=== PATIENT | female | born 1955 | race Caucasian/White ===

== ENCOUNTER → 2018-03-03 13:00 | Outpatient (CLI) | payer OTHER, SELFPAY | PROVIDERS: Family Provider Family Medicine | DX: Z23 Encounter for immunization (principal) | CPT/HCPCS: 90471; 90682 ==

== ENCOUNTER → 2018-08-10 14:40 | Outpatient (CLI) | payer OTHER, SELFPAY | PROVIDERS: PCP Family Medicine; Visit Provider Family Medicine | DX: Z13.820 Encounter for screening for osteoporosis (principal); M85.852 Other specified disorders of bone density and structure, left thigh; Z78.0 Asymptomatic menopausal state; Z82.62 Family history of osteoporosis | CPT/HCPCS: 77080 ==

== ENCOUNTER → 2018-08-24 14:00 | Outpatient (CLI) | payer OTHER, SELFPAY ==
--- NOTE | 2018-08-24 | DI.MG.S_ITS ---
BILATERAL DIGITAL SCREENING MAMMOGRAM 3D/2D WITH CAD: 08/24/2018 CLINICAL: Routine screening. Comparison is made to exams dated: 07/30/2017 mammogram, 04/16/2016 mammogram, and 03/13/2015 mammogram - [facility]. There are scattered fibroglandular elements in both breasts. Current study was also evaluated with a Computer Aided Detection (CAD) system. No significant masses, calcifications, or other findings are seen in either breast. There has been no significant interval change. IMPRESSION: NEGATIVE There is no mammographic evidence of malignancy. A 1 year screening mammogram is recommended. This exam was interpreted at Station ID: [id number]. NOTE: For mammograms, a report in lay terms will be sent to the patient. Approximately 15% of breast malignancies will not be visualized mammographically. In the management of a palpable breast mass, a negative mammogram must not discourage biopsy of a clinically suspicious lesion. Electronically Signed By: Aron muniz/antonietta:08/25/2018 08:06:27 letter sent: Normal Exam ACR BI-RADS Category 1: Negative 3341F
== END ==
PROVIDERS: PCP Family Medicine; Visit Provider Family Medicine
DX: Z12.31 Encounter for screening mammogram for malignant neoplasm of breast (principal)
CPT/HCPCS: 77063; 77067

== ENCOUNTER → 2019-03-09 12:18 | Outpatient (CLI) | payer OTHER, SELFPAY | PROVIDERS: PCP Family Medicine | DX: Z23 Encounter for immunization (principal) | CPT/HCPCS: 90471; 90682 ==

== ENCOUNTER → 2020-07-03 07:55 | Outpatient (CLI) | payer MEDICARE, OTHER, SELFPAY ==
[2020-07-03] MEDS: COVID-19 VACC #1, MRNA(MOD) 100 MCG/0.5 ML VIAL IM (08:02)
== END ==
PROVIDERS: PCP Family Medicine; Visit Provider Internal Medicine
DX: Z23 Encounter for immunization (principal)
CPT/HCPCS: 0011A; 91301

== ENCOUNTER → 2020-07-31 07:53 | Outpatient (CLI) | payer MEDICARE, OTHER, SELFPAY ==
[2020-07-31] MEDS: COVID-19 VACC #2, MRNA(MOD) 100 MCG/0.5 ML VIAL IM (08:04)
== END ==
PROVIDERS: PCP Family Medicine; Visit Provider Internal Medicine
DX: Z23 Encounter for immunization (principal)
CPT/HCPCS: 0012A; 91301

== ENCOUNTER → 2020-09-16 10:48 | Outpatient (CLI) | payer MEDICARE, OTHER, SELFPAY ==
--- NOTE | 2020-09-16 | DI.MG.S_ITS ---
BILATERAL DIGITAL SCREENING MAMMOGRAM 3D/2D WITH CAD: 09/16/2020 CLINICAL: Routine screening. Comparison is made to exams dated: 08/24/2018 mammogram, 07/30/2017 mammogram, and 04/16/2016 mammogram - [facility]. There are scattered fibroglandular elements in both breasts. Current study was also evaluated with a Computer Aided Detection (CAD) system. No significant masses, calcifications, or other findings are seen in either breast. There has been no significant interval change. IMPRESSION: NEGATIVE There is no mammographic evidence of malignancy. A 1 year screening mammogram is recommended. This exam was interpreted at Station ID: [id number]. NOTE: For mammograms, a report in lay terms will be sent to the patient. Approximately 15% of breast malignancies will not be visualized mammographically. In the management of a palpable breast mass, a negative mammogram must not discourage biopsy of a clinically suspicious lesion. Electronically Signed By: Sharmaine guajardo/antonietta:09/16/2020 16:38:17 letter sent: Normal Exam ACR BI-RADS Category 1: Negative 3341F
== END ==
PROVIDERS: PCP Family Medicine; Referring Provider Family Medicine; Visit Provider Family Medicine
DX: Z12.31 Encounter for screening mammogram for malignant neoplasm of breast (principal)
CPT/HCPCS: 77063; 77067

== ENCOUNTER → 2021-04-11 09:01 | Outpatient (CLI) | payer MEDICARE, OTHER, SELFPAY ==
[2021-04-11] MEDS: COVID-19 VACC #3, MRNA(MOD) 50 MCG/0.25 ML VIAL IM (09:16)
== END ==
PROVIDERS: PCP Family Medicine; Visit Provider Internal Medicine
DX: Z23 Encounter for immunization (principal)
CPT/HCPCS: 0013A; 91301

== ENCOUNTER → 2021-10-07 15:31 | Outpatient (ROUT) | payer MEDICARE, OTHER, SELFPAY ==
[2021-10-07 16:17] LABS: COVID-19 CEPHEID PCR (VTM/NP) POSITIVE (Negative)
== END ==
PROVIDERS: PCP Family Medicine; Visit Provider Family Medicine
DX: U07.1 COVID-19 (principal); J02.9 Acute pharyngitis, unspecified
CPT/HCPCS: U0003; U0005

== ENCOUNTER → 2022-04-13 08:22 | Outpatient (CLI) | payer MEDICARE, OTHER, SELFPAY ==
--- NOTE | 2022-04-13 | DI.MG.S_ITS ---
BILATERAL DIGITAL SCREENING MAMMOGRAM 3D/2D WITH CAD: 04/13/2022 CLINICAL: Routine screening. Comparison is made to exams dated: 09/16/2020 mammogram, 08/24/2018 mammogram, and 07/30/2017 mammogram - [facility]. There are scattered areas of fibroglandular density in both breasts (category b / 25%-50% glandular tissue). Current study was also evaluated with a Computer Aided Detection (CAD) system. No significant masses, calcifications, or other findings are seen in either breast. There has been no significant interval change. IMPRESSION: NEGATIVE There is no mammographic evidence of malignancy. A 1 year screening mammogram is recommended. Based on the Tyrer Cuzick model (a risk assessment model) the patient's lifetime risk is 5.9% and her 10 year risk is 3.5%. According to the ACR, ACS, and NCCN guidelines, an annual breast MRI exam along with mammogram is recommended if the patient's lifetime risk is 20% or greater. This exam was interpreted at Station ID: [id number]. NOTE: For mammograms, a report in lay terms will be sent to the patient. Approximately 15% of breast malignancies will not be visualized mammographically. In the management of a palpable breast mass, a negative mammogram must not discourage biopsy of a clinically suspicious lesion. Electronically Signed By: Omari ho/antonietta:04/13/2022 14:15:23 letter sent: Normal Exam ACR BI-RADS Category 1: Negative 3341F
== END ==
PROVIDERS: PCP Family Medicine; Referring Provider Family Medicine; Visit Provider Family Medicine
DX: Z12.31 Encounter for screening mammogram for malignant neoplasm of breast (principal)
CPT/HCPCS: 77063; 77067

== ENCOUNTER → 2022-07-03 11:08 | Outpatient (ROUT) | payer MEDICARE, OTHER, SELFPAY ==
[2022-07-03 11:58] LABS: Influenza A - CEPHEID Flu A NEGATIVE (NEGATIVE); Influenza B - CEPHEID Flu B NEGATIVE (NEGATIVE); Respiratory Syncytial Virus Negative (Negative)
[2022-07-03 11:59] LABS: COVID-19 CEPHEID 4-PLEX PCR Negative (Negative)
== END ==
PROVIDERS: Family Medicine; PCP Family Medicine; Visit Provider Family Medicine
DX: Z20.822 Contact with and (suspected) exposure to COVID-19 (principal)
CPT/HCPCS: 0241U

== ENCOUNTER → 2023-05-11 14:07 | Outpatient (ROUT) | payer MEDICARE, OTHER, SELFPAY ==
[2023-05-11 14:50] LABS: Influenza A - CEPHEID Flu A NEGATIVE (NEGATIVE); Influenza B - CEPHEID Flu B NEGATIVE (NEGATIVE); Respiratory Syncytial Virus Negative (Negative)
[2023-05-11 15:31] LABS: COVID-19 CEPHEID 4-PLEX PCR Negative (Negative)
== END ==
PROVIDERS: PCP Family Medicine; Visit Provider Family Medicine
DX: J06.9 Acute upper respiratory infection, unspecified (principal)
CPT/HCPCS: 0241U

== ENCOUNTER → 2023-05-19 09:08 | Outpatient (CLI) | payer MEDICARE, OTHER, SELFPAY ==
--- NOTE | 2023-05-19 | DI.MG.S_ITS ---
BILATERAL DIGITAL SCREENING MAMMOGRAM 3D/2D WITH CAD: 05/19/2023 CLINICAL: Routine screening. Comparison is made to exams dated: 09/16/2020 mammogram, 04/13/2022 mammogram, and 08/24/2018 mammogram - [facility]. There are scattered areas of fibroglandular density in both breasts (category b / 25%-50% glandular tissue). Current study was also evaluated with a Computer Aided Detection (CAD) system. No significant masses, calcifications, or other findings are seen in either breast. There has been no significant interval change. IMPRESSION: NEGATIVE There is no mammographic evidence of malignancy. A 1 year screening mammogram is recommended. Based on the Tyrer Cuzick model (a risk assessment model) the patient's lifetime risk is 5.6% and her 10 year risk is 3.5%. According to the ACR, ACS, and NCCN guidelines, an annual breast MRI exam along with mammogram is recommended if the patient's lifetime risk is 20% or greater. This exam was interpreted at Station ID: [id number]. NOTE: For mammograms, a report in lay terms will be sent to the patient. Approximately 15% of breast malignancies will not be visualized mammographically. In the management of a palpable breast mass, a negative mammogram must not discourage biopsy of a clinically suspicious lesion. Electronically Signed By: Sharmaine guajardo/antonietta:05/19/2023 15:20:29 letter sent: Normal Exam ACR BI-RADS Category 1: Negative 3341F
== END ==
PROVIDERS: PCP Family Medicine; Referring Provider Family Medicine; Visit Provider Family Medicine
DX: Z12.31 Encounter for screening mammogram for malignant neoplasm of breast (principal)
CPT/HCPCS: 77063; 77067

== ENCOUNTER → 2023-06-17 14:16 | Outpatient (CLI) | payer MEDICARE, OTHER, SELFPAY ==
--- NOTE | 2023-06-29 17:18 | DIAB.MNT ---
Initial Diabetes Medical Nutrition Therapy Assessment Name: Desirae Moreno Date: 06/17/23 Time: 235-4p Dx: Type II Diabetes Provider: Maco Desirae presents for initial Dm visit. FH of Dm with father, sister, and paternal grandmother. Reports newly diagnosed last year, Jul 2022. States her HgA1c is usually in the 6-7% range with recent per referral at 7%. No DM medications currently. Today she is looking for realistic nutrition recommendations. Has seen a different DM educator previously, but felt she was unable to ask questions she had in the allotted time. Wants to know a healthy weight for her, rec kcals and macros, snack ideas. Feels she should be 135# reportedly. States her prepares meals. 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 Lunch has to be quick. Diet Recall: 730a; peanuts, coffee with collagen 9am: avocado toast with egg and tea 11am; almonds 1230p: equatorial guinean yogurt, berries, HB egg 6p: chx fajita with flour tortilla and veg Fluids: buble water, coconut water, cran x 2oz, coffee Anthropometrics: Ht: 62 Wt: 170# reported Physical Activity: walks 3-4x per week for 60 min. 10, 000 steps per day when working. unclear how much on non work days. Has a treadmill. Self-Monitoring Blood Glucose: None, states she has not been asked to and is not interested. Diabetes Medications: None Pertinent Labs: 10/2022 HgA1c 7% chol: 164 TG 97 HDL 6 LDL 80 Past Medical History: (Last Updated 01/31/18 @ 11:05 by Val Kenyon) Chicken pox (1958) Foot fracture, left (1978) Metatarsals Glaucoma (~1989) History of Hypothyroidism (2012) MRSA infection (~2011) MVP (mitral valve prolapse) (2002) Normal Papanicolaou smear No known history of abnormal Pap. Plantar fasciitis Prediabetes Recurrent sinusitis (2009) Nutrition Rx: 1200-1400kcals CHO: 130g (SPOT SPRAYER) Pro: 70-80g Nutrition Diagnosis: - Nutrition and food related knowledge deficit r/t limited MNT/DSME aeb pt report Intervention: This participant was very receptive. Provided appropriate educational handouts. Discussed the following topics: Completed intake assessment. Discussed barriers to care. Pathophysiology of T2DM HgA1c, its correlation to blood glucose numbers, and rationale for goal Option for SMBG prn Plate Method, impact of macronutrients on blood sugar, meal timing, carbohydrate counting, pairing macronutrients and spreading out carbohydrates for better blood glucose management Recommended servings for carbohydrates at meals and snacks Heart health nutrition Weight recs based on AdjBW and BW hx Healthy weight for age Provided snack list Brainstormed appropriate meal plan based on food preferences Role of physical activity and following provider guidelines for safety Created SMART goals for patient self-care and success. Goals: Wear tracker on non work days Try a new lunch idea Download food tracking lalo if interested Follow-up: NAN GODWIN follow-up in 3-4 weeks Brittani Beavers, MPH, RDN, CDCES Certified Diabetes Care and Safety Manager P: [phone] Thank you for this referral
== END ==
LOC: DIET 14:17
PROVIDERS: PCP Family Medicine; Referring Provider Family Medicine; Visit Provider Family Medicine
DX: E11.9 Type 2 diabetes mellitus without complications (principal); Z71.3 Dietary counseling and surveillance
CPT/HCPCS: 97802

== ENCOUNTER → 2023-07-29 08:45 | Outpatient (CLI) | payer MEDICARE, OTHER, SELFPAY ==
--- NOTE | 2023-08-05 10:05 | DIAB.MNTFU ---
Follow-up Diabetes Medical Nutrition Therapy Assessment Name: Desirae Moreno Date: 07/29/23 Time: 9-10a Dx: Type II Diabetes Desirae presents for DM follow-up. Desirae has been tracking food intake. 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 Wanting to go over nutrient goals in tracking, fat types and amts, recipe resources, and lower carb crunchy snacks. States she tried overnight oats but did not like the recipe. Open to other oat recipes. During tracking noticed lower hydration than she thought. Now uses 3x24oz water bottles per day. Anthropometrics: Ht: 62 Wt: 170# reported last visit Physical Activity: walks 3-4x per week for 60 min. 10, 000 steps per day when working. Non work days getting 70,000 or more. Wearing tracker now on non work days. Self-Monitoring Blood Glucose: None, states she has not been asked to and is not interested. Diabetes Medications: None Pertinent Labs: 10/2022 HgA1c 7% chol: 164 TG 97 HDL 6 LDL 80 Past Medical History: (Last Updated 01/31/18 @ 11:05 by Val Kenyon) Chicken pox (1957) Foot fracture, left (1978) Metatarsals Glaucoma (~1989) History of Hypothyroidism (2012) MRSA infection (~2011) MVP (mitral valve prolapse) (2002) Normal Papanicolaou smear No known history of abnormal Pap. Plantar fasciitis Prediabetes Recurrent sinusitis (2009) Nutrition Rx: 1200-1400kcals CHO: 130g (EMERGENCY MAN) Pro: 70-80g Nutrition Diagnosis: - Nutrition and food related knowledge deficit r/t limited MNT/DSME aeb pt report- improved Intervention: This participant was very receptive. Provided appropriate educational handouts. Discussed the following topics: Heart health nutrition: fats types and recs Low carb snack ideas Online and book recipe resources Overnight oats with adri recipe Nutrition recs: fat, cho, pro Physical activity plan and progress Created SMART goals for patient self-care and success. Goals: Wear tracker on non work days- met Try a new lunch idea- met Download food tracking lalo if interested - met Aim for 10,000 steps on non work days- new Try a new recipe- new 15 min movement after meals- new Follow-up: NAN GODWIN follow-up in 2-3 weeks Brittani Beavers RDN, TATO Certified Diabetes Care and Tax Technician P: [phone] Thank you for this referral
== END ==
PROVIDERS: PCP Family Medicine; Referring Provider Family Medicine; Visit Provider Family Medicine
DX: E11.9 Type 2 diabetes mellitus without complications (principal); Z71.3 Dietary counseling and surveillance
CPT/HCPCS: 97803

== ENCOUNTER → 2023-08-18 11:00 | Outpatient (CLI) | payer MEDICARE, OTHER, SELFPAY ==
--- NOTE | 2023-08-18 11:03 | DI.RAD.S_ITS ---
PROCEDURE: XR TIBIA FIBULA LT 2V INDICATIONS: TIBIA MASS TECHNIQUE: 2 views of the tibia and fibula were acquired. COMPARISON: None. FINDINGS: Bones: No fractures or dislocations. No suspicious bony lesions. Soft tissues: No suspicious soft tissue calcifications or masses. Small vascular calcification along the anterior tibia, below the region of concern. No radiographic abnormality in the region of concern. IMPRESSION: No radiographic abnormality in the region of concern. Dictated by: Cain Hu M.D. on 08/18/2023 at 12:09 Approved by: Cain Hu M.D. on 08/18/2023 at 12:10
== END ==
LOC: RAD 11:01
PROVIDERS: PCP Family Medicine; Referring Provider Family Medicine; Visit Provider Family Medicine
DX: M89.8X6 Other specified disorders of bone, lower leg (principal)
CPT/HCPCS: 73590

== ENCOUNTER → 2023-08-25 09:02 | Outpatient (CLI) | payer MEDICARE, OTHER, SELFPAY ==
--- NOTE | 2023-08-25 09:04 | DI.RAD.S_ITS ---
Bone Density Report Name: ANGLE JOHNSON Age: 68 Sex: Female Ethnicity: White Date of : 1955 Indication: osteopenia; Referring Provider: KLAUDIA HINES Study: Bone densitometry was performed. Exam Date: August 25, 2023 Accession number: [id number] Bone Density: Region BMD T-score Z-score Classification AP Spine(L1-L4) 0.846 -1.8 0.3 Osteopenia Femoral Neck (Left) 0.689 -1.4 0.4 Osteopenia Total Hip (Left) 0.846 -0.8 0.7 Normal Femoral Neck (Right) 0.709 -1.3 0.6 Osteopenia Total Hip (Right) 0.805 -1.1 0.4 Osteopenia Total Hip Mean 0.826 -1.0 0.6 Normal World Health Organization criteria for BMD impression classify patients as: Normal (T-score at or above -1.0), Osteopenia (T-score between -1.0 and -2.5), or Osteoporosis (T-score at or below -2.5). 10-year Fracture Risk(1): Major Osteoporotic Fracture 9.6% Hip Fracture 1.3% Reported Risk Factors: [place] (), Neck BMD=0.689, BMI=29.6 (1) FRAX(R) Version 3.08. Fracture probability calculated for an untreated patient. Fracture probability may be lower if the patient has received treatment. Previous Exams: -- Region Exam Age BMD T-score BMD Change BMD Change Date g/cm2 vs Baseline vs Previous -- AP Spine (L1-L4) 08/25/2023 68 0.846 -1.8 -0.058 (-6.4%)# -0.077 (-8.3%)# 08/10/2018 63 0.923 -1.1 0.019 (2.1%) 0.001 (0.1%) 03/20/2013 58 0.922 -1.1 0.018 (2.0%) 0.018 (2.0%) 01/29/2010 54 0.904 -1.3 Total Hip(Left) 08/25/2023 68 0.846 -0.8 -0.101 (-10.7%)# -0.061 (-6.7%)# 08/10/2018 63 0.907 -0.3 -0.040 (-4.2%)* -0.038 (-4.0%)* 03/20/2013 58 0.945 0.0 -0.002 (-0.2%) -0.002 (-0.2%) 01/29/2010 54 0.947 0.0 Total Hip(Right) 08/25/2023 68 0.805 -1.1 -0.124 (-13.3%)# -0.129 (-13.8%)# 08/10/2018 63 0.934 -0.1 0.005 (0.5%) 0.012 (1.3%) 03/20/2013 58 0.922 -0.2 -0.007 (-0.8%) -0.007 (-0.8%) 01/29/2010 54 0.929 -0.1 -- *Denotes significance at 95% confidence level, LSC for AP Spine = 0.022 g/cm2, LSC for Total Hip = 0.027 g/cm2 # Denotes dissimilar scan types or analysis methods Impression: The patient has low bone mass, based on the Total Spine T-score. The patient has an estimated ten-year risk of hip fracture of 1.3% and an estimated ten-year risk of major fracture of 9.6%, based on the WHO FRAX algorithm. No significant bone loss was observed. Discussion: BONE DENSITY IS LOW AT ONE OR MORE SKELETAL SITES. This patient's lowest T-score is low at one or more skeletal sites. It meets the World Health Organization's (WHO) criteria for low bone mass (T-score between -1.0 and -2.5). The patient's 10-year risk of fracture as calculated by FRAX is less than the threshold where pharmacological therapy is recommended by the National Osteoporosis Foundation (NOF). However, all treatment decisions require clinical judgment and consideration of individual patient factors, including patient preferences, comorbidities, previous drug use, risk factors not captured in the FRAX model (e.g., frailty, falls, vitamin D deficiency, increased bone turnover, interval significant decline in bone density) and possible under or overestimation of fracture risk by FRAX. The patient should follow a healthful lifestyle (good nutrition with adequate calcium and vitamin D, and appropriate weight-bearing exercise). Follow-Up: Consider repeating this study in 2 to 3 years to reassess this patient's status, or sooner if there is some new clinical indication. Reported by: BETTY SMITH MD on 08/25/2023 9:26:00 AM.
== END ==
LOC: RAD 09:02
PROVIDERS: PCP Family Medicine; Referring Provider Family Medicine; Visit Provider Family Medicine
DX: M85.89 Other specified disorders of bone density and structure, multiple sites (principal)
CPT/HCPCS: 77080

== ENCOUNTER → 2023-08-25 17:02 | Outpatient (CLI) | payer MEDICARE, OTHER, SELFPAY ==
--- NOTE | 2023-08-25 17:03 | DI.MRI.S_ITS ---
PROCEDURE: MR LOWER LEG LT WO/W CON INDICATIONS: LEFT TIBIAL MASS TECHNIQUE: Noncontrast coronal T1 spin echo and STIR, sagittal T1 spin echo with fat saturation and STIR, axial T1 spin echo and T2 fast spin echo with fat saturation. After the administration of contrast, axial/sagittal/coronal T1 spin echo with fat saturation through the left lower leg. COMPARISON: [facility], CR, XR TIBIA FIBULA LT 2V, 08/18/2023, 11:27. FINDINGS: Image quality: Excellent. Bones: Fiducial marker is placed over anterior aspect of left lower leg at the level of mid tibial shaft. There is no marrow edema. No fracture or dislocation. No bony erosive changes or abnormal periosteal reaction. Soft tissues: There is a well-circumscribed oval T2 hyperintense and T1 hypointense structure within deep soft tissue along anterior aspect of proximal to mid tibial shaft deep to the site of the marker and measures up to 1.9 x 1.4 x 3.1 cm in size series 5, image 21 and series 7, image 22. After IV contrast infusion, there is no contrast enhancement within this structure. No enhancing soft tissue mass or drainable fluid collection. The scanned muscles demonstrate normal overall bulk and internal signal. IMPRESSION: 1. 1.9 x 1.4 x 3.1 cm cystic structure in deep soft tissue along anterior cortex of proximal to mid tibial shaft at the site of fiducial marker and show no contrast enhancement. Finding likely represent a deep soft tissue ganglion cyst in this area. 2. No enhancing soft tissue mass or drainable fluid collection is seen. 3. No marrow edema. No fracture or dislocation. No area of abnormal intraosseous enhancement. Dictated by: Freedom Jean Baptiste M.D. on 08/26/2023 at 16:34 Approved by: Freedom Jean Baptiste M.D. on 08/26/2023 at 16:41
== END ==
LOC: MRI 17:03
PROVIDERS: PCP Family Medicine; Referring Provider Family Medicine; Visit Provider Family Medicine
DX: M89.8X6 Other specified disorders of bone, lower leg (principal); M85.89 Other specified disorders of bone density and structure, multiple sites
CPT/HCPCS: 73720; 77080; A9579

== ENCOUNTER → 2023-10-04 11:13 | Outpatient (CLI) | payer MEDICARE, OTHER, SELFPAY ==
--- NOTE | 2023-10-04 11:16 | DI.RAD.S_ITS ---
PROCEDURE: XR KNEE LT 3V INDICATIONS: KNEE PAIN TECHNIQUE: 3 views of the knee were acquired. COMPARISON: None. FINDINGS: Bones: No fractures or dislocations. There are small intercondylar osteophytes and moderate medial femorotibial compartment narrowing. No suspicious bony lesions. Soft tissues: No joint effusion. No suspicious soft tissue calcifications. IMPRESSION: No acute bony abnormality or significant effusion. Mild osteoarthritis. Dictated by: Donna Magaña M.D. on 10/04/2023 at 14:18 Approved by: Donna Magaña M.D. on 10/04/2023 at 14:20
--- NOTE | 2023-10-04 11:16 | DI.RAD.S_ITS ---
PROCEDURE: XR KNEE RT 3V INDICATIONS: KNEE PAIN TECHNIQUE: 3 views of the knee were acquired. COMPARISON: None. FINDINGS: Bones: No fractures or dislocations. There are small intercondylar osteophytes. No suspicious bony lesions. Soft tissues: No joint effusion. No suspicious soft tissue calcifications. IMPRESSION: No acute bony abnormality or significant effusion. Very mild knee osteoarthritis. Dictated by: Donna Magaña M.D. on 10/04/2023 at 14:20 Approved by: Donna Magaña M.D. on 10/04/2023 at 14:20
== END ==
LOC: RAD 11:14
PROVIDERS: PCP Family Medicine; Referring Provider Family Medicine; Visit Provider Family Medicine
DX: M25.562 Pain in left knee (principal); G89.29 Other chronic pain; M17.0 Bilateral primary osteoarthritis of knee
CPT/HCPCS: 73562

== ENCOUNTER → 2024-02-02 13:41 | Outpatient (CLI) | payer MEDICARE, OTHER, SELFPAY ==
--- NOTE | 2024-02-02 13:44 | DI.RAD.S_ITS ---
PROCEDURE: XR KNEE LT 1TO2V INDICATIONS: LEFT KNEE PAIN TECHNIQUE: 3 views of the knee were acquired. COMPARISON: [facility], CR, XR KNEE LT 3V, 10/04/2023, 11:30. [facility], CR, XR KNEE RT 3V, 10/04/2023, 11:30. FINDINGS: Bones: No fractures or dislocations. No suspicious bony lesions. Tricompartmental osteoarthrosis with moderate medial femorotibial compartment joint space narrowing on weight-bearing views. This appears progressed compared to the prior study although previous study may not be weight-bearing. Soft tissues: Trace joint effusion. No suspicious soft tissue calcifications. IMPRESSION: No acute bony abnormality or significant effusion. Tricompartmental osteoarthrosis of the left knee with interval progression of medial femorotibial compartment joint space narrowing. Dictated by: Frankie Toribio M.D. on 02/02/2024 at 16:44 Approved by: Frankie Toribio M.D. on 02/02/2024 at 16:47
== END ==
PROVIDERS: PCP Family Medicine; Referring Provider Family Medicine; Visit Provider Family Medicine
DX: M25.562 Pain in left knee (principal); G89.29 Other chronic pain; M17.12 Unilateral primary osteoarthritis, left knee
CPT/HCPCS: 73560

== ENCOUNTER → 2024-02-09 15:05 | Outpatient (CLI) | payer MEDICARE, OTHER, SELFPAY ==
--- NOTE | 2024-02-09 | DI.RAD.S_ITS ---
PROCEDURE: XR HIP W PEL IF DONE RT 2V INDICATIONS: right hip pain TECHNIQUE: AP pelvis with lateral view of the right hip. COMPARISON: None. FINDINGS: Bones: No acute fractures or dislocations. Pelvic ring appears intact. No suspicious bony lesions. Severe joint space narrowing is seen in the right hip with subchondral sclerosis, subchondral cystic changes, and marginal osteophyte formation. There is mild joint space narrowing in the left hip. Degenerative changes are seen in the included spine. Soft tissues: The visualized bowel gas pattern is normal. No suspicious soft tissue calcifications. IMPRESSION: Severe asymmetric right hip osteoarthrosis. Approved by: Sulaiman Cole M.D. on 02/09/2024 at 20:12
== END ==
LOC: RAD 15:19
PROVIDERS: PCP Family Medicine; Referring Provider Family Medicine; Visit Provider Family Medicine
DX: M16.11 Unilateral primary osteoarthritis, right hip (principal); M25.551 Pain in right hip
CPT/HCPCS: 73502

== ENCOUNTER → 2024-07-26 15:55 | Outpatient (CLI) | payer MEDICARE, OTHER, SELFPAY ==
--- NOTE | 2024-07-26 15:56 | DI.MG.S_ITS ---
BILATERAL DIGITAL SCREENING MAMMOGRAM 3D/2D WITH CAD: 07/26/2024 CLINICAL: Routine screening. Comparison is made to exams dated: 05/19/2023 mammogram, 04/13/2022 mammogram, and 09/16/2020 mammogram - [facility]. There are scattered areas of fibroglandular density (category b / 25%-50% glandular tissue). Current study was also evaluated with a Computer Aided Detection (CAD) system. No significant masses, calcifications, or other findings are seen in either breast. There has been no significant interval change. IMPRESSION: NEGATIVE There is no mammographic evidence of malignancy. A 1 year screening mammogram is recommended. Based on the Tyrer Cuzick model (a risk assessment model) the patient's lifetime risk is 5.3% and her 10 year risk is 3.6%. According to the ACR, ACS, and NCCN guidelines, an annual breast MRI exam along with mammogram is recommended if the patient's lifetime risk is 20% or greater. This exam was interpreted at Station ID: [id number]. NOTE: For mammograms, a report in lay terms will be sent to the patient. Approximately 15% of breast malignancies will not be visualized mammographically. In the management of a palpable breast mass, a negative mammogram must not discourage biopsy of a clinically suspicious lesion. Electronically Signed By: Sharmaine guajardo/antonietta:07/27/2024 17:10:21 letter sent: Normal Exam ACR BI-RADS Category 1: Negative
== END ==
PROVIDERS: PCP Family Medicine; Referring Provider Family Medicine; Visit Provider Family Medicine
DX: Z12.31 Encounter for screening mammogram for malignant neoplasm of breast (principal)
CPT/HCPCS: 77063; 77067

== ENCOUNTER → 2024-12-28 09:28 | Outpatient (CLI) | payer MEDICARE, OTHER, SELFPAY ==
--- NOTE | 2024-12-28 09:31 | EKG_ITS ---
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
== END ==
PROVIDERS: PCP Family Medicine; Referring Provider Orthopaedic Surgery Adult Reconstructive Orthopaedic Surgery; Visit Provider Orthopaedic Surgery Adult Reconstructive Orthopaedic Surgery
DX: Z01.818 Encounter for other preprocedural examination (principal)
CPT/HCPCS: 93005

== ENCOUNTER 2025-03-19 07:15 | Day surgery (SDC) | payer MEDICARE, OTHER, SELFPAY ==
[2025-03-12 12:52] VITALS: BMI 29.7
[2025-03-19] VITALS (12 sets, daily range): BP systolic 71–150; BP diastolic 47–77; PULSE 56–77; RESP 11–20; TEMP 36.2–36.4; O2SAT 98–100
--- NOTE | 2025-03-19 | DI.RAD.S_ITS ---
PROCEDURE: XR HIP W PEL IF DONE RT 2V INDICATIONS: RT ANTERIOR HIP TECHNIQUE: 2 view(s) of the hip acquired. COMPARISON: [facility], [facility], XR HIP W PEL IF DONE RT 2V, 02/09/2024, 15:18. FINDINGS: Intraoperative right hip arthroplasty. Hardware appears intact with good anatomic alignment.. IMPRESSION: Intraoperative hip arthroplasty. Dictated by: Lianna Roca M.D. on 03/19/2025 at 17:16 Approved by: Lianna Roca M.D. on 03/19/2025 at 17:17
--- NOTE | 2025-03-19 07:33 | DI.RAD.S_ITS ---
PROCEDURE: XR HIP W PEL IF DONE RT 2V INDICATIONS: Implant placement TECHNIQUE: AP pelvis and lateral view of the hip acquired. COMPARISON: [facility], [facility], XR HIP W PEL IF DONE RT 2V, 02/09/2024, 15:18. [facility], [facility], ORTHO-XR HIP RT 2V, 11/17/2024, 9:31. FINDINGS: Bones: Patient is status post right total hip arthroplasty, with hardware components in expected positions. The hip joint appears congruent. The visualized bony structures appear intact. Soft tissues: Overlying postoperative changes are noted. No suspicious soft tissue densities. IMPRESSION: Expected post-operative appearance of a right total hip arthroplasty. Approved by: Sulaiman Cole M.D. on 03/19/2025 at 13:24
--- NOTE | 2025-03-19 07:41 | PM.PREOP ---
Pre-operative Note Interval Note History & Physical reviewed/Exam performed by Physician: Yes Changes to H&P: No
[2025-03-19] MEDS: LACTATED RINGERS 1,000 ML 42 ML IV ×3 (07:43→15:07)
[2025-03-19] MEDS: VANCOMYCIN 1,000 MG/200 ML PIGGYBACK 200 MG IV (08:40)
[2025-03-19] MEDS: TRANEXAMIC ACID 1,000 MG in SODIUM CHLORIDE 0.9% 100 ML 200 MG IV (10:05)
[2025-03-19] MEDS: KETOROLAC 30 MG/ML VIAL 15 MG INJ (10:55)
[2025-03-19] MEDS: TRANEXAMIC ACID 1,000 MG in SODIUM CHLORIDE 0.9% 100 ML 250 MG IV (11:40)
--- NOTE | 2025-03-19 11:46 | P.OP_ITS ---
Operative Date/Time/Diagnoses Date of procedure: 03/19/25 Time of procedure: 10:30 Pre-op diagnosis: Right hip osteoarthritis Post-op diagnosis: same Procedure & Clinicians Procedure: Right total hip arthroplasty Same procedure(s) as scheduled: Yes Surgeon: Derek Powers Assisted?: Yes Asphalt Smoother: Maria Fernanda Rodríguez Anesthesia Type: Spinal, Sedation and Local Operative Notes Findings: Severe arthritis Closure Type: primary Applied: implant(s) Estimated Blood Loss (mL): 250 Procedure in detail: 1. Right Uncemented Direct Anterior Merlyn Total Hip Arthroplasty (39395) 2. Computer-Assisted Musculoskeletal Surgical Navigational Orthopedic Procedure Using Fluoroscopic Image Guidance (0054T) Implants: * G7 PPS size 54 cup? * Z1 femoral stem size 3 standard offset? * 36 mm +0 ceramic femoral head? Procedure Summary: This 70-year-old female patient had very good bone quality on her preoperative DEXA scan with a T-score of -1.1. I therefore utilized uncemented fixation for her case using a triple tapered collared stem. She was fairly tight when atte mpting to broach the femur so I utilized a conjoined tendon released to achieve adequate exposure. Trialed implants were appropriate on an ortho grid overlay with the templated implants so these definitive sizes were utilized. She had excellent stability with no ability to manually dislocate her hip with maximum external rotation which was about 95? Procedure in Detail: This patient was seen preoperatively and evaluated for hip pain which was refractory to numerous nonoperative treatment modalities. Their hip pain correlated with radiographic changes demonstrating significant degeneration in the hip joint. The risks and benefits of continued nonoperative management versus operative management were discussed at length and all of the patient?s questions were answered. Additional educational materials providing further details beyond our discussion in clinic were provided via a publicly available patient education video which included the incidence of medical complications associated with total hip arthroplasty, reasons for revision following total hip arthroplasty, and patient satisfaction rates following total hip arthroplasty. With this understanding of the risks inherent to the procedure, the patient elected to move forward with operative management. Following preoperative optimization, the patient was scheduled for surgery. The patient was met in the preoperative holding area the day of the procedure and all questions were answered. The patient?s nares were swabbed in order to decolonize them from MRSA. Informed consent was signed and the right limb was marked with indelible ink.? The patient was brought back to the operating room where anesthesia was induced. The patient was transferred to the [place] table and all bony prominences were pa dded. The operative site was prepped and draped in the usual sterile fashion. Prior to incision, tranexamic acid and cefazolin were administered. Operative templating images were displayed demonstrating the anticipated implant sizes and correct operative extremity. A timeout procedure was performed verifying the patient?s identity, medical comorbidities, allergies, relevant medications, anesthesia type and the surgical plan. All present were in agreement. The assistance of a physician office manager executive assistant was required for positioning, room setup, soft tissue retraction and wound closure. Without this assistance, the procedure would have been significantly more challenging and time consuming.?? A direct anterior approach to the hip was utilized. This was performed with a longitudinal incision through a Heuter interval. The incision was planned 2 cm distal and 2 cm lateral to the ASIS extending towards the lateral patella, in line with the muscle body of the TFL. Following incision, the subcutaneous tissue was dissected while taking care to avoid injury to the lateral femoral cutaneous nerve. The fascia overlying the TFL was identified by dissecting off the overlying fat and identifying perforating vessels to the TFL. The TFL fascia was incised and dissected away from the medial border of the TFL. A retractor was placed over the superior femoral neck between the abductors and the hip caps ule and used to reflect the TFL laterally. A [place] self-retainer was then placed in the distal aspect of the wound between the TFL and the rectus femoris. This was tensioned to open up the direct anterior interval and the lateral circumflex vessels were identified and coagulated using electrocautery. The floor of the TFL fascia was incised, exposing the pericapsular fat overlying the hip capsule. A second cobra retractor was placed on the inferior femoral neck. A retractor was placed on the anterior wall of the acetabulum and used to tension the reflected head of rectus femoris, which was then released in order to limit soft tissue tension. A capsulotomy was made in the midline of the anterior hip capsule in line with the femoral neck ending at the vastus tubercle. The anterior retractor was removed as soon as the capsulotomy was completed in order to limit the amount of time that a soft tissue retractor remained on the anterior wall and limit tension on the femoral nerve. Tag stitches were placed in the superior and inferior leaflets of the hip capsule. An Vargas soft tissue retractor was introduced over the tag stitches and tensioned in the interval between the rectus femoris and the TFL in order to retract and protect those muscles. The cobra retractors were replaced intracapsularly, with one over the superior neck in the pocket created by the base of the greater trochanter and the other on the femoral head. The capsulotomy was extended laterally to the base of the greater trochanter and medially to the lesser trochanter. This required externally rotating the hip. Once the lesser trochanter had been identified, a neck cut was planned according to measurements from preoperative templating. A ruler was cut at the length measured between the superior aspect of the lesser trochanter and the collar of the prosthesis. This line was extended towards the inferior aspect of the lateral cobra retractor to plan a cut which would leave minimal residual femoral neck laterally. The neck was cut at 60 degrees of external rotation along that line. A second cut was performed to remove a large napkin ring and facilitate head extraction. The napkin ring cut and femoral head were removed.?? A broad anterior wall retractor was placed between the labrum and the anterior capsule so that the anterior capsule would prevent capturing and pinching the femoral nerve anteriorly. An additional retractor was placed on the posterior wall. External rotation and traction were applied through the [place] table so that the cut surface of the femoral neck would not restrict access to the acetabulum. The labrum was excised sharply and the pulvinar was excised with electrocautery to limit bleeding from branches of the obturator artery. Acetabular reamers were selected based on preoperative templating and measurements of the excised femoral head. These were introduced into the acetabulum. Fluoroscopy was utilized to replicate a standing AP pelvis radiograph by centering over the pe lvis, rotating until there was appropriate symmetry between the obturator foramen, and introducing caudal tilt to match the position of the pubic symphysis relative to the sacrococcygeal junction according to the patient?s anatomy. Once satisfied with the reaming depth corresponding to the preoperative template and the pinch fit between the columns, an appropriate sized acetabular cup was selected which would provide 1 mm of press-fit. This cup was introduced and manipulated until appropriate abduction and anteversion angles were obtained with careful attention to appropriate abduction and anteversion angles as evaluated by the position of the cup relative to the anterior and posterior mederos of the acetabulum and the AP fluoroscopy which recreated the patient?s standing radiograph. The cup was impacted into place. Peripheral osteophytes were removed. The acetabular liner was then placed with care to ensure locking of the locking mechanism. Attention was then turned to the femur. All retractors were removed, traction was released, a retractor was placed in the interval between the hip capsule and the gluteus minimus. The lateral capsule was released using electrocautery. Traction was released and a Mentor hook was placed posteriorly around the proximal femur at the level of the vastus ridge. The table height was lowered in order to restrict the tension on the anterior structures during hip hyperextension to limit the risk of femoral nerve palsy. With traction off and the hip at 90 degrees of external rotation, the hip was hyperextended and adducted while manually elevating the femur away from the acetabulum with the Mentor hook to avoid hooking the greater trochanter on the pelvis. An asymmetric retractor was placed over the calcar and a broad double-pronged retractor was placed over the greater trochanter. The tag stitch capturing the lateral leaflet of the capsule was moved to the medial side, leaving the conjoined and piriformis tendons isolated in the face of the greater trochanter. The hip was externally rotated and elevated. A release of the conjoined tendon was necessary in order to obtain adequate exposure for broaching. The canal was opened with an opening broach and a rasp was used to remove cancellous bone. A rongeur was used to remove the residual lateral bone at the base of the greater trochanter to avoid placing the stem in varus. The femur was then broached to the appropriate sized stem yielding good rotational fit and fill of the canal as well as appropriate version of the stem trial. Neck and head trials were placed, all retractors were removed and the hip was returned to neutral abduction and extension. I then reduced the hip and manually trialed it before changing surgical gloves. Initial trialing was performed with a size 2 broach, a standard offset neck and a +0 head. I initially manually externally rotated the hip and found no instability. I then locked the hip in 45 degrees of external rotation and dropped it to the floor with traction off which demonstrated no instability. An ortho grid overlay comparing the nonoperative side with the operative side with the legs and equal abduction was utilized to analyzed leg length and offset which demonstrated equal leg length and offset. The hip was dislocated and I returned to the broaching position. Based on my evaluation during initial trialing I planned to place these definitive implants. Upon returning to the broach in position I found that the size 2 broach was rotationally unstable so I upsized to a size 3 broach and sank it down to the same point at which the 2 had sat. This was rotationally stable. The definitive stem was placed and the trunnion was cleaned and dried. I placed a ceramic head onto the trunnion and impacted it into place on the Garcia taper.?? All retractors were removed and the hip was reduced. A dilute mixture of betadine and peroxide was used to bathe the soft tissues during final fluoroscopic assessment. Appropriate component positioning was confirmed on an AP pelvis radiograph with the operative and nonoperative legs in 40 degrees of external rotation, evaluating leg length and offset. Appropriate stem fill was evaluated on AP and lateral hip radiographs. No previously unrecognized fractures were identified on these radiographs. There was no hip instability with maximum (95?) external rotation as well as a 45 degree drop test. The hip was copiously irrigated with pulse lavage. The capsule was closed with absorbable interrupted suture. The TFL fascia was closed with barbed suture while carefully protecting the lateral femoral cutaneous nerve from entrapment. A mixture of Ropivacaine, Epinephrine and Toradol was infiltrated throughout the soft tissues. The skin was closed with 2-0 and 3-0 sutures. Surgical glue was applied and a soft dressing was placed.??The sponge, instrument and needle counts were reported as being correct at the end of the case.??No obvious complications occurred. The patient was transferred from the [facility] back to a stretcher. The patient emerged from anesthesia without difficulty and was taken to the PACU in a stable condition.? Plan for aftercare: * No hip precautions * Weightbearing as tolerated * Aspirin 81 twice per day for DVT prophylaxis * Anticipate discharge home today * Multimodal pain regimen with no IV opioids ordered * Follow up at [facility] in 2 weeks Complications: none
--- NOTE | 2025-03-19 11:47 | SUR.OPER ---
Supine on padded [place] table with bilateral legs secured in padded positioning boots and suspended in positioning spars, operative leg in traction per surgeon. Head on one pillow. ArmS secured on padded armboard <90 degrees abduction.. Padded perineal post in place per surgeon.
--- NOTE | 2025-03-19 15:37 | SUR.PHASEII ---
PT staff down here to evalute patient. Patient unable to void after first attempt ( at approximately 1500); will attempt voiding trial after PT assessment.
--- NOTE | 2025-03-19 16:42 | SUR.PHASEII ---
1530: Patient completed PT evaluation without difficulty; VSS; able to void prior to discharge with .
--- NOTE | 2025-03-19 16:55 | PT.IIE ---
Current Diagnoses Unilateral primary osteoarthritis, right hip (03/19/25) Surgery Performed Operation Date: 03/19/25 09:30 Actual Procedures p Total Hip Arthroplasty/Anterior Approach(Right) - Derek Powers MD Surgical History (Last Updated 03/12/25 @ 13:11 by Britany Shabazz, RN) Anesthesia complication History of trabeculectomy (2008) History of trabeculectomy (2007) Hx of bilateral cataract extraction Status post excision of lipoma (2002) Medical History (Last Updated 03/12/25 @ 13:27 by Britany Shabazz RN) Chicken pox (1957) Diabetes type 2 Foot fracture, left (1978) Glaucoma (~1989) History of COVID-19 (~2021) History of Hypothyroidism (2012) MRSA infection (~1979) MVP (mitral valve prolapse) (2002) Normal Papanicolaou smear Plantar fasciitis Prediabetes Primary osteoarthritis of right hip Recurrent sinusitis (2009) Physical Therapy Inpatient Evaluation/Re-Eval M1 PT/OT-IP Prior Functional Status Start: 03/19/25 16:33 Freq: NEEDED Status: Discharge Protocol: Document 03/19/25 16:44 KJ (Rec: 03/19/25 16:54 KJ [id number]) Medical Review Prior Functional Status Mobility and Gait Indep w/out AD Activities of Daily Indep Living and IADL's Social History Household Members spouse Living Arrangements House Number of Floors ( Two Floors Floors) Number of Stairs To 1 step into house. Pt will not be using 2nd floor for a Enter/Railing? while. Home Equipment Front Wheel Walker M2 PT-IP Current Condition Start: 03/19/25 16:33 Freq: NEEDED Status: Discharge Protocol: Document 03/19/25 16:44 KJ (Rec: 03/19/25 16:54 KJ [id number]) Physical Therapy Current Condition Current Condition Evaluation Date 03/19/25 Treatment Diagnosis s/p R ant hip replacement Onset Date 03/19/25 M3 PT-IP Subjective Start: 03/19/25 16:33 Freq: NEEDED Status: Discharge Protocol: Document 03/19/25 16:44 KJ (Rec: 03/19/25 16:54 KJ [id number]) Subjective Physical Therapy Visit Type Type Initial Evaluation Visit Start Time 15:29 Visit Stop Time 15:55 Physical Therapy Visit Comments Patient Comments Starting to feel better Patient Goals to be able to go home today Therapy Pain Assessment Pain When Pain Assessed At Rest Pain Present Pain Present Pain Reported Location right hip Intensity 2 Pain Management Re-positioning Techniques M4 PT-IP Mobility and Gait Start: 03/19/25 16:33 Freq: NEEDED Status: Discharge Protocol: Document 03/19/25 16:44 KJ (Rec: 03/19/25 16:54 KJ [id number]) PT-Transfer Assessment Comments Mobility Comments Performs sit to/from stand w/CGA, verbal and tactile cuing, refiguring on environment in PACU due to lack of chair without armrests Gait Assessment Gait Gait Assistance Contact Guard Assist Required: Distance (Feet) 20 Able to Maintain Yes Weight Bearing Status During Gait Assistive Devices Assistive Device Front Wheeled Walker Gait Deviations General Gait Pattern Decreased Stride Length,Narrow Based Gait Factors Limiting Gait Function Factors Limiting Decreased Sensation,Pain Gait Function Comments Gait Comments Ambulates slowly, guarded. Provided verbal and tactile cuing for upright standing position and safety. Stair Climbing Assessment Comments Stair Climbing Verbally instructed pt and family on stairs. Pt has Comments second floor stairway with railing on both sides. Also has a straight cane and has been practicing ascending and descending stairs with cane + railing. PT-Balance Assessment Sitting Balance and Reactions Static Sitting Normal Balance Ability Dynamic Sitting Good Balance Ability Standing Balance and Reactions Static Standing Good Balance Ability Dynamic Standing Good Balance Ability M6 PT-IP Treatment Start: 03/19/25 16:33 Freq: NEEDED Status: Discharge Protocol: Document 03/19/25 16:44 KJ (Rec: 03/19/25 16:54 KJ [id number]) Physical Therapy Treatment Exercises Exercises Ankle Pumps,Gluteal Sets,Quad Sets Other Treatments Other Treatment Instructed pt to avoid extremes of movement, chau in Performed immed post op period. Instructed pt on adaptive equipment such as car unloader helper and sock aid. Reviewed safety instructions particularly during transitions. Reviewed WBAT. Reviewed safe use of walker. M7 PT-IP Assessment and Plan Start: 03/19/25 16:33 Freq: NEEDED Status: Discharge Protocol: Document 03/19/25 16:44 KJ (Rec: 03/19/25 16:54 KJ [id number]) PT Summary Assessment and Plan Potential Rehabilitation Excellent Potential Status of Condition Evolving at Evaluation Summary Impairments Pain,ROM,Gait,Activity Tolerance Progress Towards Progressing Toward Goals Goals Treatment Plan Other Pt plans to continue PT as an outpatient Recommendations and Next Treatment Focus Weight Bearing Status Weight Bearing Weight Bear as Tolerated Status Discharge Recommendations PT Discharge Home with Assistance Recommendations Other Discharge car unloader helper Recommendations Transportation Needs Private Vehicle at Discharge
== END 2025-03-19 15:50 | disposition home or self-care (01) ==
LOC: OR 07:16 → AC 07:17
PROVIDERS: PCP Family Medicine; Referring Provider Family Medicine; Visit Provider Orthopaedic Surgery Adult Reconstructive Orthopaedic Surgery
PROC: (CPT 27130; principal; 2025-03-19 09:30)
DX: M16.11 Unilateral primary osteoarthritis, right hip (principal); M25.751 Osteophyte, right hip; E11.9 Type 2 diabetes mellitus without complications; Z86.14 Personal history of Methicillin resistant Staphylococcus aureus infection
CPT/HCPCS: 27130; 73502; 76000; 82962; 97116; 97161; C1776; C1713; J0689; J1885; J2250; J2704; J3010; J3375; J7050; J7120